=== PATIENT | female | born 2000 | race Two or more races ===

== ENCOUNTER 2024-06-18 13:45 | Emergency (ER) | payer OTHER ==
[~2024-06-18] VITALS: Ht 152.4 cm; Wt 47.6 kg
[2024-06-18] MEDS ORDERED: TIROSINT25 MCG PO (15:44)
[2024-06-18] MEDS ORDERED: LITHATE5 MG PO (15:45)
[2024-06-18] MEDS ORDERED: VRAYLAR1.5 MG PO (15:45)
[2024-06-18 17:14] LABS: HEMATOCRIT 40.2 % (36.0-45.00); HEMOGLOBIN 13.3 g/dL (12.0-15.00); MEAN CELL VOLUME 87.6 fL (80.00-100.00); MEAN CORPUSCULAR HGB CONC 33.1 g/dl (32.0-36.0); PLATELET COUNT 261 K/uL (150-450); RED BLOOD COUNT 4.58 M/uL (4.00-6.00); RED CELL DISTRIBUTION WIDTH 13.4 % (11.5-14.5)
== END 2024-06-18 18:51 | disposition home or self-care (01) ==
LOC: ER 13:47
DX: U07.1 COVID-19 (principal)